=== PATIENT | male | born 1960 | race Caucasian/White ===

== ENCOUNTER 2016-06-12 13:49 | Day surgery (SDC) | payer MEDICARE, BC, OTHER ==
--- NOTE | ~2016-06-12 | OP ---
Record Of Operation [facility] [address] [place]. [address] NAME: NHUNG KURTZ : 56 STATUS : [facility]#: [id number] AGE: 55 ADM/REG DATE : 06/12/16 MR#: [id number] REPORT SERV DATE: 06/15/16 DICTATED BY: SD PERAZA DATE: 06/12/16 REPORT STATUS : Draft TRANSCRIBED BY: MODL DATE: 06/12/16 DATE OF PROCEDURE: 06/12/2016 SURGEON: Sd Peraza MD INTERIOR DESIGN PROGRAM CHAIR: None. PREPROCEDURE DIAGNOSIS: Nonfunctional right IJ PermCath. POSTPROCEDURE DIAGNOSIS: Nonfunctional right IJ PermCath. PROCEDURE PERFORMED: Exchange of PermCath under fluoroscopic guidance. ANESTHETIC: Local. SPECIMENS: Old PermCath. ESTIMATED BLOOD LOSS: Minimal. COMPLICATIONS: None. DESCRIPTION OF PROCEDURE: The patient was brought to the operating placed supine position on the operating room table. The patient had LMA anesthetic without complications. The right neck and chest were prepped and draped in sterile fashion. A time-out was performed. Identified the correct patient, procedure, and site. We began by using local anesthetic to anesthetize the base of the neck as well as a tract going up to the chest wall. We made a transverse incision over the apex of the catheter and dissected down with cautery until the catheter was reached. The catheter was grasped between 2 hemostats and divided. We dissected the chest portion and removed it as specimen. We then passed a wire through the remaining portion of the catheter. Once the wire was in good position, we removed the remaining portion of the catheter in total. We then advanced the great breakaway sheath into position under fluoroscopy. We did meet resistance going in and the sheath was only advanced about 3/5th away into position. We then tunneled a 24 cm curved catheter from the chest entry site into the neck exit site. The tunnel was removed. We then inserted the catheter into the break away sheath into position under fluoroscopy. The sheath were split while advancing the catheter into position. Once the sheath was removed, the catheter was flushed and aspirated with ease. It was flushed with heparinized saline. End caps were placed appropriately. We then sutured up the neck site using interrupted Monocryl suture. The catheter was affixed to the chest using interrupted nylon suture. Sterile dressing was applied. The patient tolerated the procedure well. Was awakened and transferred to recovery in stable condition. FIORDALIZA/FELICIA Record Of [place] [address] [place]. [address] NAME: NHUNG KURTZ : 56 STATUS : [facility] PAT#: [id number] AGE: 55 ADM/REG DATE : 06/12/16 MR#: [id number] REPORT SERV DATE: 06/15/16 DICTATED BY: SD PERAZA DATE: 06/12/16 REPORT STATUS : Draft TRANSCRIBED BY: FELICIA DATE: 06/12/16 Sd Peraza MD / [id number] CC: MD Rai Vogel D.O.
[~2016-06-12 13:49] MED LIST: *UNABLE1; ACET500CAP PO; ADVAIR100 INH; ALLEGRA PO; ASAB PO; BENTYL10 PO; CALCIUM ACETATE PO; CENTRUM TAB1 TAB PO; COZAAR100 MG PO; DIALYVITE PO; DIALYVITE800 MG PO; DSS PO; FLONASE NAS; FLOVENT110 INH; HALF81 PO; LEVAQUIN5T PO; LIPITOR20 PO; LOP50 PO; LORTAB 5 PO; MULTIVIT/MIN PO; NORV10 PO; PCET PO; PHOSLO PO; PHOSLYRA; PHOSLYRA PO; PLAVIX PO; PRAV10 PO; PRILO PO; PROAIR HFA INH; PROTONIX PO; RENVELA0.8 GM PO; RENVELA2.4 GM PO; ROCALTROL0.5 MCG OR; RX NASAL SPRAY NAS; SENSIPAR30 M1 OR; SENSIPAR30 M1 PO; SENSIPAR30 MG OR; SENSIPAR60 MG PO; SINGULAIR1 PO; SINGULAIR5 PO; SODBICAR10 PO; SODIUM BICARBONATE PO; SYMBICORT 80/4.1 INH INH; TESS PO; TUMSROLL PO; VANCO1P IV; VANCOMYCIN; VITAMIN B-121000 MC1 SL; XOPENEX HFA INH; ZANAFLEX 4 MG TA4 MG PO; ZANAFLEX2 MG PO; [UNRECOGNIZED DRUG - OTHER]; [UNRECOGNIZED DRUG - OTHER] INH; [UNRECOGNIZED DRUG - OTHER] INH
[2016-06-12 15:23] LABS: BASOPHILS 0.3 %; BASOPHILS ABSOLUTE 0.02 10/3/uL (0.0-0.16); EOSINOPHILS 2.4 %; EOSINOPHILS ABSOLUTE 0.17 10/3/uL (0.0-0.53); HEMATOCRIT 30.2 % (40.0-51.0); HEMOGLOBIN 10.2 g/dL (13.6-17.8); IMMATURE GRANULOCYTES 0.3 %; IMMATURE GRANULOCYTES ABSOLUTE 0.02 10/3/uL (0.0-0.11); LYMPHOCYTES 18.1 %; LYMPHOCYTES ABSOLUTE 1.28 10/3/uL (0.67-4.30); MEAN CORPUS HGB CONC 33.8 g/dL (32.0-36.0); MEAN CORPUSCULAR HEMOGLOB 31.5 pg (26.0-34.0); MEAN CORPUSCULAR VOLUME 93.2 fL (80-100); MEAN PLATELET VOLUME 9.4 fL (9.2-13.0); MONOCYTES 5.4 %; MONOCYTES ABSOLUTE 0.38 10/3/uL (0.21-1.20); NEUTROPHILS 73.5 %; NEUTROPHILS ABSOLUTE 5.19 10/3/uL (2.02-8.40); PLATELET COUNT 239 10/3/uL (150-400); RBC DISTRIBUTION WIDTH 15.1 % (12.0-16.0); RED CELL COUNT 3.24 10/6/uL (4.7-6.1); WHITE BLOOD CELLS 7.1 10/3/uL (4.5-10.5)
[2016-06-12 15:24] LABS: MANUAL DIFF NO %
[2016-06-12 15:42] LABS: CHLORIDE, SERUM 102 MMOL/L (96-112); GLUCOSE, SERUM 93 MG/DL (60-99); SODIUM, SERUM 139 MMOL/L (135-148)
[2016-06-12 15:43] LABS: BUN (BLOOD UREA NITROGEN) 87 MG/DL (6-23); CALCIUM, SERUM 9.6 MG/DL (8.5-10.4); CO2 (CARBON DIOXIDE) 16 MMOL/L (24-34); GFR AFRICAN AMERICAN 4 ML/MIN (>=60); GFR NON AFRICAN AMERICAN 3 ML/MIN (>=60); POTASSIUM, SERUM 5.6 MMOL/L (3.5-5.3)
== END 2016-06-12 23:59 | disposition home or self-care (01) ==
LOC: SDC 13:49
PROVIDERS: Student in an Organized Health Care Education/Training Program
PROC: 05HM33Z Insertion of Infusion Device into Right Internal Jugular Vein, Percutaneous Approach (ICD-10-PCS; 2016-06-12)
PROC: 05PY33Z Removal of Infusion Device from Upper Vein, Percutaneous Approach (ICD-10-PCS; principal; 2016-06-12 14:45)
DX: T82.41XA Breakdown (mechanical) of vascular dialysis catheter, initial encounter (principal); N18.6 End stage renal disease; I25.2 Old myocardial infarction; Q90.9 Down syndrome, unspecified; E78.5 Hyperlipidemia, unspecified; Z95.5 Presence of coronary angioplasty implant and graft; Z79.82 Long term (current) use of aspirin; Z99.2 Dependence on renal dialysis; Z79.02 Long term (current) use of antithrombotics/antiplatelets; Z79.899 Other long term (current) drug therapy
CPT/HCPCS: 36581; 77001; 80048; 85025; C1750; C1769; G0257; J2250; J2370; J3010

== ENCOUNTER 2016-06-13 18:05 | Emergency (ER) | payer MEDICARE, OTHER ==
[2016-06-13 18:24] LABS: BASOPHILS 0.1 %; BASOPHILS ABSOLUTE 0.01 10/3/uL (0.0-0.16); EOSINOPHILS 0.7 %; EOSINOPHILS ABSOLUTE 0.07 10/3/uL (0.0-0.53); HEMOGLOBIN 11.9 g/dL (13.6-17.8); IMMATURE GRANULOCYTES 0.4 %; IMMATURE GRANULOCYTES ABSOLUTE 0.04 10/3/uL (0.0-0.11); LYMPHOCYTES 6.2 %; LYMPHOCYTES ABSOLUTE 0.65 10/3/uL (0.67-4.30); MEAN CORPUS HGB CONC 33.9 g/dL (32.0-36.0); MEAN CORPUSCULAR HEMOGLOB 32.1 pg (26.0-34.0); MEAN CORPUSCULAR VOLUME 94.6 fL (80-100); MEAN PLATELET VOLUME 10.3 fL (9.2-13.0); MONOCYTES 6.9 %; MONOCYTES ABSOLUTE 0.73 10/3/uL (0.21-1.20); NEUTROPHILS 85.7 %; NEUTROPHILS ABSOLUTE 9.01 10/3/uL (2.02-8.40); PLATELET COUNT 269 10/3/uL (150-400); RBC DISTRIBUTION WIDTH 15.2 % (12.0-16.0); RED CELL COUNT 3.71 10/6/uL (4.7-6.1)
[2016-06-13 18:25] LABS: ER CBC TAT 0 Hrs 11 Mins; HEMATOCRIT 35.1 % (40.0-51.0); MANUAL DIFF NO %; WHITE BLOOD CELLS 10.5 10/3/uL (4.5-10.5)
[2016-06-13 18:42] LABS: A/G RATIO 0.9 (0.7-1.9); ALKALINE PHOSPHATASE 164 U/L (45-117); BUN (BLOOD UREA NITROGEN) 22 MG/DL (6-23); CALCIUM, SERUM 10.1 MG/DL (8.5-10.4); CHLORIDE, SERUM 102 MMOL/L (96-112); CO2 (CARBON DIOXIDE) 28 MMOL/L (24-34); CREATININE 4.63 MG/DL (0.70-1.30); GFR AFRICAN AMERICAN 15 ML/MIN (>=60); GFR NON AFRICAN AMERICAN 13 ML/MIN (>=60); GLOBULIN 4.7 G/DL (2.5-4.1); GLUCOSE, SERUM 110 MG/DL (60-99); POTASSIUM, SERUM 3.6 MMOL/L (3.5-5.3); SGOT(AST) 18 U/L (5-40); SGPT(ALT) 21 U/L (5-65); SODIUM, SERUM 140 MMOL/L (135-148); TOTAL BILIRUBIN 0.8 MG/DL (0-1.2); TOTAL PROTEIN 8.7 G/DL (6.0-8.5)
[2016-06-13 20:58] LABS: ASCORBIC ACID (UR NOT ORDER) NEG (NEG); BILIRUBIN, URINE NEGATIVE (NEG); ER URINALYSIS TAT 0 Hrs 14 Mins; KETONE, URINE NEGATIVE (NEG); LEUKOCYTE ESTERASE(NOT OR NEG (NEG); NITRITE (URINE) NEG (NEG); WBC (NOT ORDERED) (RFLEX) 1 (0-5)
== END 2016-06-13 22:43 | disposition home or self-care (01) ==
LOC: ER 18:05
PROVIDERS: Emergency Medicine
DX: R10.9 Unspecified abdominal pain (principal); J45.909 Unspecified asthma, uncomplicated; I11.0 Hypertensive heart disease with heart failure; I50.9 Heart failure, unspecified; K21.9 Gastro-esophageal reflux disease without esophagitis; Z95.5 Presence of coronary angioplasty implant and graft; Z88.0 Allergy status to penicillin; Z88.8 Allergy status to other drugs, medicaments and biological substances; Z79.82 Long term (current) use of aspirin; Z79.899 Other long term (current) drug therapy
CPT/HCPCS: 70450; 71010; 80053; 81001; 85025; 99285

== ENCOUNTER 2016-06-17 06:24 | Inpatient (IN) | payer MEDICARE, OTHER ==
--- NOTE | ~2016-06-17 | HP ---
History And Physical [place] [id number] [facility] [place]. [address] NAME: NHUNG KURTZ : 56 STATUS : ADM IN PAT#: [id number] AGE: 55 ADM/REG DATE : 06/17/16 MR#: [id number] REPORT SERV DATE: 06/17/16 DICTATED BY: JAJA HERRERA DATE: 06/17/16 REPORT STATUS : Draft TRANSCRIBED BY: MODL DATE: 06/17/16 DATE OF ADMISSION: 06/17/2016 REASON FOR ADMISSION: End-stage renal disease, with syncopal episode. HISTORY OF PRESENT ILLNESS: This is a very pleasant, 55-year-old, , male patient, who has Down syndrome and lives with his mother in [facility]. He dialyzes on a Sunday, , Sunday schedule. He presents to [facility] for evaluation. He was recently here on 06/12, for a PermCath exchange by Dr. Jarvis Peraza. He was dialyzed on 06/12 which was a Sunday and according to records, here UF was approximately 1.7 L. He was subsequently returned to his home post that admission and returned to dialysis on Sunday per his usual schedule. The patient is here with his mother who reports that post hemodialysis that day, that the patient suffered syncopal episodes x2 at home and showed overt actionable tremors that she likened to a seizure. She contacted the emergency services in [facility] and was responded to by Ambulance Service. The responding emergency services were unable to transport the patient to [facility] and offered to transport the patient to [facility] for evaluation. The patient's mother, as she is familiar with [facility] as a hospital entity, declined to be evaluated at [facility]. He returned to dialysis on and did sit for his usual hemodialysis time. The patient suffered no more syncopal episodes according to the mother outside of those dual occurrences on Sunday post dialysis. Denies associated chest pain. No nausea, vomiting, or diarrhea. PAST MEDICAL HISTORY: Positive for end-stage renal disease; Sunday, , and Sunday dialysis in [place] via a subclavian access. History is also positive for Down syndrome; with ASD and VSD; hypertension; previous seizures; asthma; right IJ PermCath; appendectomy; hernia repair; urethral stenosis; vocal cord surgery with scarring; reflux; coronary artery disease, status post stenting; ischemic cardiomyopathy with ejection fraction of 20% to 25%. Most recent echo is unavailable, but listed in 12/2013. The patient has also undergone procedures for a right femoral pseudoaneurysm in 12/2013, as well as laparoscopic cholecystectomy for biliary dyskinesia by Dr. Orozco in 06/2015. REVIEW OF SYSTEMS: Completed with the assistance of the patient's mother who is at bedside and provides the bulk of the patient's medical care. SOCIAL HISTORY: No EtOH. No illicit drugs. No tobacco. Lives with his mother who provides a local medical care, again as above. ACTIVE MEDICATIONS: Include the following: ASA 81 mg daily; B complex with folic acid one tablet p.o. daily; Pulmicort p.r.n.; PhosLo 667 mg with meals p.r.n.; Plavix 75 mg daily; Genasoft 100 mg p.o. daily; Nexium dosage is undefined, likely daily; Singulair 10 mg daily; Protonix 40 mg daily; Pravachol 10 mg daily; Senokot one tab daily p.r.n.; and eye drops with dosage undefined. PHYSICAL EXAMINATION: VITAL SIGNS: Blood pressure 128/73, temperature 97.7, pulse at 83 beats per minute. He is History And Physical [address] [address] NAME: NHUNG KURTZ : 56 STATUS : ADM IN [facility]#: [id number] AGE: 55 ADM/REG DATE : 06/17/16 MR#: [id number] REPORT SERV DATE: 06/17/16 DICTATED BY: JAJA HERRERA DATE: 06/17/16 REPORT STATUS : Draft TRANSCRIBED BY: MODL DATE: 06/17/16 100% on room air. Weight is measured at 63.616 kilos which is significantly less than his previous measured weight at 79.9 kilos on 06/12 according to available documentation here. HEENT: Normocephalic and atraumatic. Normal ocular movements. No scleral icterus. No conjunctival pallor is appreciated. NECK: Supple. No thyromegaly. No JVD or mass. CHEST: Shows positive S1 and S2. No rubs or gallops. LUNGS: Diminished, clear to auscultation throughout. Normal expansion and effort bilaterally. GI: Examination shows a rounded obese abdomen. No mass or tenderness. : Examination is deferred. EXTREMITIES: Show positive pulses. No clubbing, cyanosis, or edema. NEUROLOGIC: He is grossly intact and nonfocal. Does have known Down syndrome. He is of appropriate mood and affect. SKIN: Warm, dry, and intact to visualized surfaces. No rash, lesions, or ecchymosis. GENERAL: He is a non-distressed, 55-year-old, , male patient who suffers from Downs with his mother at bedside, in no distress. The patient is no distress during evaluation. LABORATORY DATA: Pertinent laboratories and imaging to this evaluation are as follows: Most recent comprehensive metabolic panel: Sodium 141, potassium 3.7 chloride 102, CO2 of 25, BUN 35, creatinine 7.58, reflected GFR at 7 mL/minute, calcium 9.3, total protein 7.7, albumin 3.5, globulin of 4.2, alkaline phos 132, ALT 17 and AST 12. Troponin less than 0.02. CBC: White blood cell count at 8.7, RBC 3.29, hemoglobin 10.4, hematocrit 31.2, platelets 188. Portable chest x-ray: Shallow inspiration, possible left upper lobe atelectasis. Vas-Cath attempt at the right ventricle, likely on the basis of very shallow inspiration. CT of the brain without contrast, no evidence of acute infarct of the brain is seen. IMPRESSION AND PLAN: End-stage renal disease. Sunday, and Sunday, [place] via subclavian access. Now, presenting to [facility] with recent inpatient admission for PermCath change out with dialysis on 06/12, and subsequent dialysis on 06/13, with syncopal episodes x2. It does not appear through review with family member that this was a seizure as theorized by the patient's mother, as the patient did not have a postictal state that is identifiable by her recall of events. However, given his cardiac history, we would undertake the following: We will dialyze this gentleman as his per his usual schedule today, on Sunday and minimize his UF. Check carotid ultrasound. Check echo. Trend his enzymes and check orthostatic blood pressures. Place him on a renal diet. Avoid electrolyte protocol. Monitor his laboratories closely. Consider Cardiology consultation if enzymes should elevate or there should be other compelling evidence to provide consultation from their service. At this point, as I do not believe this gentleman has suffered a seizure, we will avoid Neurologic consultation. Should other symptomatology manifest that provides reasonable expectations for a neurologic evaluation, we would undertake it at that point. I suspect that he most likely was somewhat too dry post back-to History And Physical [address] [place]. [address] NAME: NHUNG KURTZ : 56 STATUS : ADM IN PAT#: [id number] AGE: 55 ADM/REG DATE : 06/17/16 MR#: [id number] REPORT SERV DATE: 06/17/16 DICTATED BY: JAJA HERRERA DATE: 06/17/16 REPORT STATUS : Draft TRANSCRIBED BY: FELICIA DATE: 06/17/16 back dialysis on Sunday, Sunday and suffered a syncopal episode as a result. Further modification of treatment plan may be made based on clinical presentation of the patient, laboratory results, and further consultation with Renal attending. DICTATED BY: Berny Ruelas NP JR/FELICIA Jaja Herrera M.D. / [id number] CC: Jaja Herrera M.D.
[2016-06-17 05:56] LABS: BASOPHILS 0.2 %; BASOPHILS ABSOLUTE 0.02 10/3/uL (0.0-0.16); EOSINOPHILS 2.7 %; EOSINOPHILS ABSOLUTE 0.23 10/3/uL (0.0-0.53); ER CBC TAT 0 Hrs 05 Mins; HEMATOCRIT 31.2 % (40.0-51.0); HEMOGLOBIN 10.4 g/dL (13.6-17.8); IMMATURE GRANULOCYTES 0.9 %; IMMATURE GRANULOCYTES ABSOLUTE 0.08 10/3/uL (0.0-0.11); LYMPHOCYTES 13.1 %; LYMPHOCYTES ABSOLUTE 1.13 10/3/uL (0.67-4.30); MANUAL DIFF NO %; MEAN CORPUS HGB CONC 33.3 g/dL (32.0-36.0); MEAN CORPUSCULAR HEMOGLOB 31.6 pg (26.0-34.0); MEAN CORPUSCULAR VOLUME 94.8 fL (80-100); MEAN PLATELET VOLUME 10.3 fL (9.2-13.0); MONOCYTES ABSOLUTE 0.52 10/3/uL (0.21-1.20); NEUTROPHILS 77.1 %; NEUTROPHILS ABSOLUTE 6.67 10/3/uL (2.02-8.40); PLATELET COUNT 188 10/3/uL (150-400); RED CELL COUNT 3.29 10/6/uL (4.7-6.1); WHITE BLOOD CELLS 8.7 10/3/uL (4.5-10.5)
[2016-06-17 06:13] LABS: A/G RATIO 0.8 (0.7-1.9); ALBUMIN 3.5 G/DL (3.5-5.0); CALCIUM, SERUM 9.3 MG/DL (8.5-10.4); CHLORIDE, SERUM 102 MMOL/L (96-112); CO2 (CARBON DIOXIDE) 25 MMOL/L (24-34); GLOBULIN 4.2 G/DL (2.5-4.1); GLUCOSE, SERUM 124 MG/DL (60-99); POTASSIUM, SERUM 3.7 MMOL/L (3.5-5.3); SGOT(AST) 12 U/L (5-40); SGPT(ALT) 17 U/L (5-65); SODIUM, SERUM 141 MMOL/L (135-148); TOTAL PROTEIN 7.7 G/DL (6.0-8.5)
[2016-06-17 06:20] LABS: ALKALINE PHOSPHATASE 132 U/L (45-117); BUN (BLOOD UREA NITROGEN) 35 MG/DL (6-23); CREATININE 7.58 MG/DL (0.70-1.30); GFR AFRICAN AMERICAN 8 ML/MIN (>=60); GFR NON AFRICAN AMERICAN 7 ML/MIN (>=60); TOTAL BILIRUBIN 0.3 MG/DL (0-1.2)
[2016-06-17 06:51] LABS: TROPONIN I <0.02 NG/ML (<0.05)
[2016-06-17] MEDS ORDERED: PLAVIX PO (08:14)
[2016-06-17] MEDS ORDERED: PHOSLO PO (08:14)
[2016-06-17] MEDS ORDERED: ASAB PO (08:15)
[2016-06-17] MEDS ORDERED: GENASOFT100 MG PO (08:15)
[2016-06-17] MEDS ORDERED: SENTAB PO (08:16)
[2016-06-17] MEDS ORDERED: DIALYVITE PO (08:16)
[2016-06-17] MEDS ORDERED: PROTONIX PO (08:16)
[2016-06-17] MEDS ORDERED: SINGULAIR1 PO (08:17)
[2016-06-17] MEDS ORDERED: PRAV10 PO (08:17)
[2016-06-17] MEDS ORDERED: NEXIUM40 PO (08:17)
[2016-06-17] MEDS ORDERED: [UNRECOGNIZED DRUG - OTHER] OPH (08:18)
[2016-06-17] MEDS ORDERED: PULRESP.5 INH (08:19)
[2016-06-17 13:03] LABS: BASOPHILS 0.3 %; BASOPHILS ABSOLUTE 0.02 10/3/uL (0.0-0.16); EOSINOPHILS 2.5 %; EOSINOPHILS ABSOLUTE 0.19 10/3/uL (0.0-0.53); HEMATOCRIT 28.8 % (40.0-51.0); HEMOGLOBIN 9.7 g/dL (13.6-17.8); IMMATURE GRANULOCYTES 1.2 %; IMMATURE GRANULOCYTES ABSOLUTE 0.09 10/3/uL (0.0-0.11); LYMPHOCYTES 16.8 %; LYMPHOCYTES ABSOLUTE 1.26 10/3/uL (0.67-4.30); MEAN CORPUS HGB CONC 33.7 g/dL (32.0-36.0); MEAN CORPUSCULAR HEMOGLOB 31.9 pg (26.0-34.0); MEAN CORPUSCULAR VOLUME 94.7 fL (80-100); MONOCYTES 5.5 %; MONOCYTES ABSOLUTE 0.41 10/3/uL (0.21-1.20); NEUTROPHILS 73.7 %; NEUTROPHILS ABSOLUTE 5.53 10/3/uL (2.02-8.40); RBC DISTRIBUTION WIDTH 15.1 % (12.0-16.0); RED CELL COUNT 3.04 10/6/uL (4.7-6.1); WHITE BLOOD CELLS 7.5 10/3/uL (4.5-10.5)
[2016-06-17 13:07] LABS: ALBUMIN 3.2 G/DL (3.5-5.0); BUN (BLOOD UREA NITROGEN) 40 MG/DL (6-23); CALCIUM, SERUM 9.2 MG/DL (8.5-10.4); CHLORIDE, SERUM 103 MMOL/L (96-112); CO2 (CARBON DIOXIDE) 21 MMOL/L (24-34); CREATININE 8.21 MG/DL (0.70-1.30); GFR AFRICAN AMERICAN 8 ML/MIN (>=60); GFR NON AFRICAN AMERICAN 7 ML/MIN (>=60); GLUCOSE, SERUM 106 MG/DL (60-99); POTASSIUM, SERUM 4.1 MMOL/L (3.5-5.3); SODIUM, SERUM 132 MMOL/L (135-148); TROPONIN I <0.02 NG/ML (<0.05)
[2016-06-17 13:08] LABS: CK-MB 2.1 NG/ML; CPK 79 U/L (0-200); PHOSPHORUS, SERUM 6.7 MG/DL (2.5-4.5)
[2016-06-17 13:14] LABS: MANUAL DIFF NO %; MEAN PLATELET VOLUME 10.5 fL (9.2-13.0); PLATELET COUNT 184 10/3/uL (150-400)
[2016-06-17 21:44] LABS: CK-MB 2.6 NG/ML; CPK 76 U/L (0-200); TROPONIN I <0.02 NG/ML (<0.05)
[2016-06-18 07:26] LABS: HEMATOCRIT 30.6 % (40.0-51.0); HEMOGLOBIN 10.1 g/dL (13.6-17.8); MEAN CORPUSCULAR HEMOGLOB 31.6 pg (26.0-34.0); MEAN CORPUSCULAR VOLUME 95.6 fL (80-100); MEAN PLATELET VOLUME 10.1 fL (9.2-13.0); PLATELET COUNT 186 10/3/uL (150-400); RBC DISTRIBUTION WIDTH 15.1 % (12.0-16.0)
[2016-06-18 07:28] LABS: MANUAL DIFF YES %
[2016-06-18 07:45] LABS: ALBUMIN 3.2 G/DL (3.5-5.0); CALCIUM, SERUM 9.8 MG/DL (8.5-10.4); CHLORIDE, SERUM 104 MMOL/L (96-112); CPK 69 U/L (0-200); GLUCOSE, SERUM 91 MG/DL (60-99); POTASSIUM, SERUM 4.2 MMOL/L (3.5-5.3); TROPONIN I <0.02 NG/ML (<0.05)
[2016-06-18 07:46] LABS: BUN (BLOOD UREA NITROGEN) 22 MG/DL (6-23); CO2 (CARBON DIOXIDE) 27 MMOL/L (24-34); CREATININE 5.19 MG/DL (0.70-1.30); GFR AFRICAN AMERICAN 13 ML/MIN (>=60); GFR NON AFRICAN AMERICAN 11 ML/MIN (>=60); SODIUM, SERUM 139 MMOL/L (135-148)
[2016-06-18 07:47] LABS: CK-MB 1.8 NG/ML; PHOSPHORUS, SERUM 5.7 MG/DL (2.5-4.5)
[2016-06-18 08:00] LABS: BAND NEUTROPHILS 7 %; EOSINOPHILS 2 %; EOSINOPHILS ABSOLUTE (CALC) 0.14 10/3/uL (0.0-0.53); LYMPHOCYTES 26 %; LYMPHOCYTES ABSOLUTE (CALC) 1.82 10/3/uL (0.67-4.30); MONOCYTES 7 %; MONOCYTES ABSOLUTE (CALC) 0.49 10/3/uL (0.21-1.20); NEUTROPHILS ABSOLUTE (CALC) 4.55 10/3/uL (2.02-8.40); SEGMENTED NEUTROPHIL (0) 58 %; TOTAL NUCLEATED CELLS 100
[2016-06-18 08:01] LABS: HELMET CELLS OCC (0-2/OIF); PLATELET ESTIMATE ADQ (ADEQUATE); POLYCHROMASIA 1+ (2-5/OIF) (0-1/OIF); TEARDROP SHAPED RBCS OCC (0-2/OIF)
[2016-06-19 07:20] LABS: BASOPHILS 0.4 %; BASOPHILS ABSOLUTE 0.03 10/3/uL (0.0-0.16); EOSINOPHILS 4.1 %; EOSINOPHILS ABSOLUTE 0.33 10/3/uL (0.0-0.53); HEMATOCRIT 29.2 % (40.0-51.0); HEMOGLOBIN 9.6 g/dL (13.6-17.8); IMMATURE GRANULOCYTES 0.6 %; IMMATURE GRANULOCYTES ABSOLUTE 0.05 10/3/uL (0.0-0.11); LYMPHOCYTES 20.8 %; LYMPHOCYTES ABSOLUTE 1.68 10/3/uL (0.67-4.30); MANUAL DIFF NO %; MEAN CORPUS HGB CONC 32.9 g/dL (32.0-36.0); MEAN CORPUSCULAR HEMOGLOB 31.3 pg (26.0-34.0); MEAN CORPUSCULAR VOLUME 95.1 fL (80-100); MEAN PLATELET VOLUME 9.8 fL (9.2-13.0); MONOCYTES 7.1 %; MONOCYTES ABSOLUTE 0.57 10/3/uL (0.21-1.20); NEUTROPHILS ABSOLUTE 5.42 10/3/uL (2.02-8.40); PLATELET COUNT 184 10/3/uL (150-400); RED CELL COUNT 3.07 10/6/uL (4.7-6.1); WHITE BLOOD CELLS 8.1 10/3/uL (4.5-10.5)
[2016-06-19 07:42] LABS: ALBUMIN 3.1 G/DL (3.5-5.0); CALCIUM, SERUM 9.7 MG/DL (8.5-10.4); CHLORIDE, SERUM 104 MMOL/L (96-112); CO2 (CARBON DIOXIDE) 24 MMOL/L (24-34); GFR AFRICAN AMERICAN 8 ML/MIN (>=60); GFR NON AFRICAN AMERICAN 7 ML/MIN (>=60); GLUCOSE, SERUM 108 MG/DL (60-99); PHOSPHORUS, SERUM 6.3 MG/DL (2.5-4.5); SODIUM, SERUM 139 MMOL/L (135-148)
[2016-06-19 07:43] LABS: BUN (BLOOD UREA NITROGEN) 36 MG/DL (6-23); CREATININE 7.53 MG/DL (0.70-1.30); POTASSIUM, SERUM 4.6 MMOL/L (3.5-5.3)
== END 2016-06-19 16:52 | disposition home or self-care (01) | DRG 682 ==
LOC: ER 06:24 → 1SO 07:56
PROVIDERS: Nurse Practitioner; Registered Nurse; Specialist
PROC: 5A1D00Z (ICD-10-PCS; principal; 2016-06-17)
DX: I12.0 Hypertensive chronic kidney disease with stage 5 chronic kidney disease or end stage renal disease (principal); N18.6 End stage renal disease; E87.1 Hypo-osmolality and hyponatremia; Z99.2 Dependence on renal dialysis; I25.5 Ischemic cardiomyopathy; E86.0 Dehydration; Q90.9 Down syndrome, unspecified; J45.909 Unspecified asthma, uncomplicated; I25.10 Atherosclerotic heart disease of native coronary artery without angina pectoris; Z79.82 Long term (current) use of aspirin; Z79.02 Long term (current) use of antithrombotics/antiplatelets; Z79.899 Other long term (current) drug therapy; I25.2 Old myocardial infarction; Z98.61 Coronary angioplasty status
CPT/HCPCS: 71010; 80053; 80069; 82550; 82553; 83735; 84484; 85025; 93005; 93320; 93325; 93880; 99285; A9270-GY; C8921; G0257; Q9957